=== PATIENT | male | born 1980 | race Two or more races ===

== ENCOUNTER 2020-04-02 14:00 | Outpatient (CLI) | payer MEDICARE ==
[2020-04-02] MEDS ORDERED: LIDOCAINE 2% JEL 5 ML TUBE ONE (14:42)
[2020-04-02] MEDS ORDERED: CADEXOMER IODINE UD 5 GM TUBE ONE (14:56)
== END 2020-04-02 23:59 | disposition home or self-care (01) ==
LOC: WOU 14:00
PROVIDERS: ATTEND Podiatrist Foot & Ankle Surgery
DX: E11.621 Type 2 diabetes mellitus with foot ulcer (principal); L97.422 Non-pressure chronic ulcer of left heel and midfoot with fat layer exposed; E11.42 Type 2 diabetes mellitus with diabetic polyneuropathy; M08.20 Juvenile rheumatoid arthritis with systemic onset, unspecified site; L84 Corns and callosities; M24.574 Contracture, right foot; M24.572 Contracture, left ankle; M20.42 Other hammer toe(s) (acquired), left foot; M20.41 Other hammer toe(s) (acquired), right foot; Z96.643 Presence of artificial hip joint, bilateral
CPT/HCPCS: 11042

== ENCOUNTER 2020-04-13 13:00 | Outpatient (CLI) | payer MEDICARE | END 2020-04-13 23:59 | disposition home or self-care (01) | LOC: WOU 13:00 | PROVIDERS: ATTEND Podiatrist Foot & Ankle Surgery | DX: E11.42 Type 2 diabetes mellitus with diabetic polyneuropathy (principal); M08.20 Juvenile rheumatoid arthritis with systemic onset, unspecified site; L84 Corns and callosities; M24.574 Contracture, right foot; M24.572 Contracture, left ankle; M20.42 Other hammer toe(s) (acquired), left foot; M20.41 Other hammer toe(s) (acquired), right foot; Z87.891 Personal history of nicotine dependence | CPT/HCPCS: G0463 ==